=== PATIENT | female | born 1950 | race Two or more races ===

== ENCOUNTER 2023-05-03 12:50 | Emergency (ER) | payer OTHER ==
[~2023-05-03] VITALS: Ht 160 cm; Wt 45.4 kg
[~2023-05-03 12:50] MED LIST: AMBIEN5 MG PO; CLONAZEPAM0.125 MG/T PO; COREG CR10 MG PO; EC ASPIRIN325 MG PO; LIRICA; PLAVIX75 MG PO; SIMBALTA; [UNRECOGNIZED DRUG - OTHER]; [UNRECOGNIZED DRUG - OTHER]; [UNRECOGNIZED DRUG - OTHER]; [UNRECOGNIZED DRUG - OTHER]
[2023-05-03] MEDS ORDERED: LIPITOR40 M1 PO (13:24)
[2023-05-03 16:23] LABS: HEMATOCRIT 33.4 % (36.0-45.00); HEMOGLOBIN 11.2 g/dL (12.0-15.00); MEAN CELL VOLUME 95.6 fL (80.00-100.00); MEAN CORPUSCULAR HEMOGLOBIN 32.2 pg (27.00-32.0); MEAN CORPUSCULAR HGB CONC 33.7 g/dl (32.0-36.0); PLATELET COUNT 167 K/uL (150-450); RED BLOOD COUNT 3.49 M/uL (4.00-6.00); RED CELL DISTRIBUTION WIDTH 13.3 % (11.5-14.5)
[2023-05-03] MEDS ORDERED: PAXLOVID 150-11 EAC1 PO (16:56)
[2023-05-03] MEDS ORDERED: ZITHROMAX200 MG PO (16:56)
[2023-05-03] MEDS ORDERED: QC TUSSIN DM L118 ML PO (16:56)
== END 2023-05-03 17:17 ==
LOC: ER 13:02
PROVIDERS: Nurse Practitioner Family
DX: U07.1 COVID-19 (principal); J00 Acute nasopharyngitis [common cold]; I10 Essential (primary) hypertension; I11.9 Hypertensive heart disease without heart failure; G47.09 Other insomnia; Z98.890 Other specified postprocedural states